=== PATIENT | male | born 1965 | race Caucasian/White ===

== ENCOUNTER 2018-10-24 19:44 | Emergency (ER) | payer SELFPAY ==
[2018-10-24] MEDS ORDERED: ACETAMINOPHEN 325 MG TAB (20:49)
[2018-10-24] MEDS: ACETAMINOPHEN 325 MG TAB PO (20:51)
== END 2018-10-24 23:25 | disposition home or self-care (01) ==
LOC: FTE 23:25
DX: S09.90XA Unspecified injury of head, initial encounter (principal); F17.210 Nicotine dependence, cigarettes, uncomplicated; R51 Headache; V23.4XXA Motorcycle driver injured in collision with car, pick-up truck or van in traffic accident, initial encounter
CPT/HCPCS: 70450; 99284-25